=== PATIENT | female | born 1985 | race Caucasian/White ===

== ENCOUNTER → 2017-04-26 | Outpatient (CLI) | payer OTHER ==
[~2017-04-26] MED LIST: GADOBUTROL 7.5 MMOL/7.5 ML PFS ONE; LIDOCAINE 1%, 20ML ONE; ROPivacaine/PF 0.2%, 10 ML ONE
== END | disposition home or self-care (01) ==
LOC: RAD 12:57
PROVIDERS: ATTEND Physician Assistant
DX: M25.831 Other specified joint disorders, right wrist (principal); M67.431 Ganglion, right wrist
CPT/HCPCS: 73115; 73222; A9585; J2795; J3490